=== PATIENT | female | born 1965 | race Caucasian/White ===

== ENCOUNTER 2016-12-30 13:59 | Emergency (ER) | payer MEDICAID ==
[2016-12-30] MEDS ORDERED: Amoxicillin/Clavulanate K 875-125 MG Tab ONE (14:00)
[2016-12-30] MEDS ORDERED: Acetaminophen/HYDROcodone 325-5 MG Tab ONE (14:00)
[2016-12-30] MEDS ORDERED: Ketorolac 60 MG/2 ML SDV ONE (15:27)
[2016-12-30] MEDS ORDERED: cefTRIAXone 1 GM Vial ONE (15:28)
[2016-12-30] MEDS ORDERED: cefTRIAXone 1 GM Vial IM ONE (15:29)
[2016-12-30] MEDS ORDERED: Ketorolac 60 MG/2 ML SDV IM ONE (15:29)
[2016-12-30] MEDS ORDERED: Lidocaine 1% 20 ML MDV ONE (15:30)
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
[2016-12-30 16:13] VITALS: BP 128/85
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
== END 2016-12-30 16:00 | disposition home or self-care (01) ==
LOC: LB.ED 13:59
DX: K02.9 Dental caries, unspecified (principal); F41.9 Anxiety disorder, unspecified; E11.9 Type 2 diabetes mellitus without complications; W22.8XXA Striking against or struck by other objects, initial encounter
CPT/HCPCS: 70150; J0696; J1885; 96372; 99283-25; A9270-GY